=== PATIENT | female | born 1985 | race Caucasian/White ===

== ENCOUNTER → 2016-08-28 | Outpatient (CLI) | payer BC ==
[~2016-08-28] MED LIST: ANUS2.5C2 TOP; COLA100C PO; FEOS200T2 PO; MOM30SS PO; MOTR200T44 PO; TYLE167L PO
--- NOTE | 2016-08-29 07:11 | REP ---
Clinical: Anatomical evaluation. Comparison: None . Findings: Examination demonstrates a single live intrauterine in cephalic presentation. motion is identified by technologist. Placenta is noted anteriorly and grade zero without evidence for placenta previa or abruption. Amniotic fluid volume is normal. Cervix measures 3.9 cm in length and appears closed. Nuchal cord cannot be excluded. Gestational age by LMP 20 weeks 1 day with LOR 01/13/2017 . Gestational age by current measurements 20 weeks 4 days with LOR 01/11/2017 . FHR equals 136 beats per minute. BPD 4.8 cm 20 weeks 4 days HC 17.7 cm 20 weeks 1 day AC 15.2 cm 20 weeks 3 days FL 3.7 cm 21 weeks 5 days HL 3.3 cm 21 weeks 2 days HC/AC ratio 1.16 Estimated weight 386 grams ( 77th percentile). Anatomical assessment demonstrates normal structures including cranium, choroid plexus, cavum, cerebellum/posterior fossa, facial features, lungs, four-chamber heart/ventricular outflow tracts, diaphragm, stomach, cord insertion/three-vessel cord, kidneys/bladder, spine, and extremities. Impression: Single live intrauterine in cephalic presentation demonstrating appropriate interval growth. Anatomical assessment is complete and normal. Signed by Vignesh Alexander MD 08/29/2016 07:02 A
== END ==
LOC: M SMT 12:46
PROVIDERS: ATTEND Nurse Practitioner Women's Health
DX: Z34.82 Encounter for supervision of other normal pregnancy, second trimester (principal); Z3A.20 20 weeks gestation of pregnancy